=== PATIENT | female | born 1960 | race Two or more races ===

== ENCOUNTER 2019-05-05 18:58 | Emergency (ER) | payer MEDICAID ==
[2019-05-05] MEDS ORDERED: Iopamidol 755 Mg/ML 100 ML Bottle IV ONE (20:41)
--- NOTE | 2019-05-05 22:44 | EDM.PDOC ---
ED HPI GENERAL MEDICAL PROBLEM - General Chief Complaint: Abdominal Pain Stated Complaint: STOMACH PAIN AND HEEL PAIN Time Seen by Provider: 05/05/19 19:40 Source of Information: Reports: Patient, Family History Limitations: Reports: Other (languge barrier ) - History of Present Illness INITIAL COMMENTS - FREE TEXT/NARRATIVE: patient presents with concern for abdominal pain for the past two days. She describes that she has had a bulge in that part of her belly in the past, but now it is not going away and hurting worse and worse. No other symptoms, no nausea, vomiting, change in bowel movements. Hasn't taken anything for pain. Very concerned to know can it be fixed. No urinary symptoms or abnormal vaginal discharge. She is otherwise healthy and has not been to the doctor in quite a long time. Denies history of heart disease, diabetes, and denies any symptoms of feeling short of breath, cough or chest pain when she exerts. Middle Abdomen Pain Score (Numeric/FACES): 7 Foot Pain Score (Numeric/FACES): 10 - Related Data Allergies Allergy/AdvReac Type Severity Reaction Status Date / Time No Known Allergies Allergy Verified 05/05/19 19:11 Home Meds: Home Meds NK [No Known Home Meds] 05/05/19 [History] Past Medical History - Past Health History Medical/Surgical History: Denies Medical/Surgical History - Past Surgical History GI Surgical History: Reports: Cholecystectomy Female Surgical History: Reports: Section Social & Family History - Family History Family Medical History: Unobtainable (language barrier) - Tobacco Use Smoking Status *Q: Never Smoker - Caffeine Use Caffeine Use: Reports: None - Recreational Drug Use Recreational Drug Use: No ED ROS GENERAL - Review of Systems Review Of Systems: Unable To Obtain (language barrier, obtainable pertinents noted in HPI) ED EXAM, GENERAL - Physical Exam Exam: See Below Free Text/Narrative:: General: alert, pleasant and not in any acute distress. Throat without erythema , mucus membranes moist, no tonsillar enlargement or exudates. No cervical lymphadenopathy. Heart regular, lungs clear. Abdomen obese, soft, nondistended , tender all across the middle and area of umbilicus. Several small surgical scars present from previous surgeries. Difficult to palpate any clear hernia. Peripheral pulses +2, no lower extremity edema, gait normal. Course - Vital Signs Text/Narrative:: concern raised for hernia, possibly incarcerated, although doesn't seem to have any general bowel symptoms, does not appear acutely uncomfortable. Will obtain labs. If creatinine ok will get CT abdomen/pelvis with contrast. Last Recorded V/S: Last Vital Signs Temp 36.7 C 05/05/19 19:10 Pulse 76 05/05/19 22:40 Resp 22 H 05/05/19 22:40 BP 130/58 L 05/05/19 22:40 Pulse Ox 98 05/05/19 22:40 - Orders/Labs/Meds Orders: Active Orders 24 hr Category Date Time Status Abdomen Pelvis w Cont [CT] Stat Exams 05/05/19 20:37 Taken Labs: Laboratory Tests 05/05/19 05/05/19 05/05/19 Range/Units 20:13 20:13 20:13 WBC 10.1 (4.5-12.0) X10-3/uL RBC 4.18 (3.23-5.20) x10(6)uL Hgb 13.0 (11.5-15.5) g/dL Hct 37.6 (30.0-51.3) % MCV 90.1 (80-96) fL MCH 31.1 (27.7-33.6) pg MCHC 34.5 (32.2-35.4) g/dL RDW 14.0 (11.5-15.5) % Plt Count 206 (125-369) X10(3)uL MPV 9.4 (7.4-10.4) fL Neut % (Auto) 71.1 (46-82) % Lymph % (Auto) 19.1 (13-37) % Dyer % (Auto) 5.9 (4-12) % Eos % (Auto) 4 (1.0-5.0) % Baso % (Auto) 0 (0-2) % Neut # (Auto) 7.2 (1.6-8.3) # Lymph # (Auto) 1.9 (0.6-5.0) # Dyer # (Auto) 0.6 (0.0-1.3) # Eos # (Auto) 0.4 (0.0-0.8) # Baso # (Auto) 0.0 (0.0-0.2) # Sodium 144 (135-145) mmol/L Potassium 3.5 (3.5-5.3) mmol/L Chloride 107 (100-110) mmol/L Carbon Dioxide 29 (21-32) mmol/L BUN 18 (7-18) mg/dL Creatinine 0.8 (0.55-1.02) mg/dL Est Cr Clr Drug Dosing 70.01 mL/min Estimated GFR (MDRD) > 60 (>60) BUN/Creatinine Ratio 22.5 H (9-20) Glucose 114 (80-116) mg/dL Lactic Acid 0.7 (0.4-2.2) mmol/L Calcium 8.5 L (8.6-10.2) mg/dL Total Bilirubin 0.2 (0.1-1.3) mg/dL AST 20 (5-25) IU/L ALT 39 H (12-36) U/L Alkaline Phosphatase 111 (56-112) IU/L C-Reactive Protein (0.5-0.9) mg/dL Total Protein 6.9 (6.0-8.0) g/dL Albumin 3.5 (3.2-4.6) g/dL Globulin 3.4 g/dL Albumin/Globulin Ratio 1.0 /10/13 Range/Units 20:13 WBC (4.5-12.0) X10-3/uL RBC (3.23-5.20) x10(6)uL Hgb (11.5-15.5) g/dL Hct (30.0-51.3) % MCV (80-96) fL MCH (27.7-33.6) pg MCHC (32.2-35.4) g/dL RDW (11.5-15.5) % Plt Count (125-369) X10(3)uL MPV (7.4-10.4) fL Neut % (Auto) (46-82) % Lymph % (Auto) (13-37) % Dyer % (Auto) (4-12) % Eos % (Auto) (1.0-5.0) % Baso % (Auto) (0-2) % Neut # (Auto) (1.6-8.3) # Lymph # (Auto) (0.6-5.0) # Dyer # (Auto) (0.0-1.3) # Eos # (Auto) (0.0-0.8) # Baso # (Auto) (0.0-0.2) # Sodium (135-145) mmol/L Potassium (3.5-5.3) mmol/L Chloride (100-110) mmol/L Carbon Dioxide (21-32) mmol/L BUN (7-18) mg/dL Creatinine (0.55-1.02) mg/dL Est Cr Clr Drug Dosing mL/min Estimated GFR (MDRD) (>60) BUN/Creatinine Ratio (9-20) Glucose (80-116) mg/dL Lactic Acid (0.4-2.2) mmol/L Calcium (8.6-10.2) mg/dL Total Bilirubin (0.1-1.3) mg/dL AST (5-25) IU/L ALT (12-36) U/L Alkaline Phosphatase (56-112) IU/L C-Reactive Protein 0.9 (0.5-0.9) mg/dL Total Protein (6.0-8.0) g/dL Albumin (3.2-4.6) g/dL Globulin g/dL Albumin/Globulin Ratio Meds: Medications Discontinued Medications Generic Name Dose Route Start Last Admin Trade Name Freq PRN Reason Stop Dose Admin Iopamidol 100 ml 05/05/19 20:41 05/05/19 21:04 Isovue-370 (76%) IV 05/05/19 20:42 100 ml . DIRECTED ONE Administration - Re-Assessments/Exams Free Text/Narrative Re-Assessment/Exam: labs reviewed, CT ordered Free Text/Narrative Re-Assessment/Exam: CT report reviewed, shows supraumbilical hernia with some possibly trapped fat and subcutaneous tissue, no bowel involvement. Call placed to Dr Granado, surgeon disease intervention specialist, to discuss management. Recommended patient to followup in office on , specific instructions written. Assistance much appreciated. Discussed with patient and daughter. She is visiting from [facility], but thinks they will be here a month; her daughter came from [place] to work the [employer]. She was interested in followup information and they will make a decision. Aware needs to call surgeon's office in the morning if decides to go ahead and consider surgery while in the area. All questions answered. Departure - Departure Time of Disposition: 22:40 Disposition: Home, Self-Care 01 Condition: Fair Clinical Impression: Hernia of abdominal wall - Discharge Information *PRESCRIPTION DRUG MONITORING PROGRAM REVIEWED*: Not Applicable *COPY OF PRESCRIPTION DRUG MONITORING REPORT IN PATIENT YOHANA: Not Applicable Instructions: Hernia, Adult, [id number] Referrals: PCP,None [Primary Care Provider] - Forms: ED Department Discharge Additional Instructions: can use some ice or cool pack over the area to see if helps pain followup with Dr. Granado, surgeon, on . His number is: [phone] when you call the office, tell them "I was seen in the ER on Saturday night and Dr. Hernandez talked to Dr. Granado. He said to see patient in office on 3pm" Primary care information (should be ok with [place] medicaid) [facility] - My Orders Last 24 Hours: My Active Orders 05/05/19 20:37 Abdomen Pelvis w Cont [CT] Stat - Assessment/Plan Last 24 Hours: My Active Orders 05/05/19 20:37 Abdomen Pelvis w Cont [CT] Stat
== END 2019-05-05 22:55 | disposition home or self-care (01) ==
LOC: FB.ED 18:58 → EDBD 18:58 → FB.ED 22:55
DX: K43.9 Ventral hernia without obstruction or gangrene (principal); Z90.49 Acquired absence of other specified parts of digestive tract
CPT/HCPCS: 36415; 74177; 80053; 83605; 85025; 86140; 99284; Q9967